=== PATIENT | female | born 1990 | race Caucasian/White ===

== ENCOUNTER 2016-10-07 22:38 | Observation (INO) | payer MEDICAID ==
[~2016-10-07] VITALS: Ht 177.8 cm; Wt 78.5 kg
[2016-10-07] MEDS ORDERED: PREN-88 PO (23:21)
[2016-10-07] MEDS ORDERED: ACETAMINOPHEN 500MG TABLET PO ONE (23:30)
[2016-10-07] MEDS ORDERED: CEFAZOLIN 2,000 MG in DEXT 5% WATER 100 ML IV NR (23:30)
[2016-10-07] MEDS ORDERED: LACTATED RINGERS 1,000 ML IV SCH (23:30)
[2016-10-08 00:46] LABS: CLARITY URINE CLEAR (CLEAR); COLOR URINE YELLOW (YELLOW); GLUCOSE URINE NEGATIVE (NEGATIVE); KETONES URINE NEGATIVE (NEGATIVE); LEUKOCYTE ESTERASE URINE 2+ (NEGATIVE); NITRITE URINE NEGATIVE (NEGATIVE); OCCULT BLOOD URINE NEGATIVE (NEGATIVE); PROTEIN URINE NEGATIVE (NEGATIVE); SPECIFIC GRAVITY URINE 1.015 (1.005-1.030); UROBILINOGEN URINE 0.2 E.U./dL (0.2-1.0)
[2016-10-08 00:59] LABS: *AMPHETAMINES SCREEN URINE NEGATIVE (NEGATIVE); *BARBITURATES SCREEN URINE NEGATIVE (NEGATIVE); *BENZODIAZEPINES SCREEN URINE NEGATIVE (NEGATIVE); *COCAINE SCREEN URINE NEGATIVE (NEGATIVE); CANNABINOID URINE SCREEN NEGATIVE (NEGATIVE); METHADONE URINE SCREEN NEGATIVE (NEGATIVE); OPIATES URINE SCREEN NEGATIVE (NEGATIVE); PHENCYCLIDINE URINE SCREEN NEGATIVE (NEGATIVE)
== END 2016-10-08 00:36 | disposition home or self-care (01) ==
LOC: L&D 22:38
PROVIDERS: ADMIT Obstetrics & Gynecology; ATTEND Obstetrics & Gynecology
DX: O26.899 Other specified pregnancy related conditions, unspecified trimester (principal); R10.9 Unspecified abdominal pain; Z3A.00 Weeks of gestation of pregnancy not specified
CPT/HCPCS: 80305; 81001; 96365; 99281; G0378; J0690; J7120; J7060

== ENCOUNTER 2016-10-20 00:38 | Observation (INO) | payer MEDICAID, OTHER ==
[~2016-10-20] VITALS: Ht 177.8 cm; Wt 79.8 kg
[~2016-10-20 00:38] MED LIST: PREN-88 PO
== END 2016-10-20 05:00 | disposition home or self-care (01) ==
LOC: L&D 00:38
PROVIDERS: ADMIT Specialist; ATTEND Specialist
DX: O26.893 Other specified pregnancy related conditions, third trimester (principal); R10.9 Unspecified abdominal pain; Z3A.37 37 weeks gestation of pregnancy
CPT/HCPCS: 76815; 76818; 99281; G0378

== ENCOUNTER 2016-10-28 21:08 | Observation (INO) | payer OTHER ==
[~2016-10-28] VITALS: Ht 177.8 cm; Wt 79.8 kg
[2016-10-28] MEDS ORDERED: ACETAMINOPHEN 500MG TABLET PO ONE (22:15)
== END 2016-10-28 22:45 | disposition home or self-care (01) ==
LOC: L&D 21:08
PROVIDERS: ADMIT Specialist; ATTEND Specialist
DX: O26.893 Other specified pregnancy related conditions, third trimester (principal); R10.2 Pelvic and perineal pain; Z3A.38 38 weeks gestation of pregnancy
CPT/HCPCS: 99281; G0378